=== PATIENT | male | born 1955 | race Caucasian/White ===

== ENCOUNTER 2021-11-02 07:48 | Day surgery (SDC) | payer MEDICARE, BC ==
[~2021-11-02] VITALS: Ht 175.3 cm; Wt 84.6 kg
[~2021-11-02 07:48] MED LIST: ALBU4; Aspir 8181 MG; Lisinopril2.5 MG; Prinivil10 MG; ROSU5
== END 2021-11-02 09:41 | disposition home or self-care (01) ==
LOC: ORSCSDS 07:48 → EDBD 09:00 → ORSCSDS 09:00
PROVIDERS: Internal Medicine Gastroenterology
PROC: 0DJD8ZZ Inspection of Lower Intestinal Tract, Via Natural or Artificial Opening Endoscopic (ICD-10-PCS; principal; 2021-11-02 09:00)
DX: Z12.11 Encounter for screening for malignant neoplasm of colon (principal); Z86.010 Personal history of colon polyps; K57.30 Diverticulosis of large intestine without perforation or abscess without bleeding; J45.909 Unspecified asthma, uncomplicated; K64.8 Other hemorrhoids; Z79.82 Long term (current) use of aspirin; Z79.899 Other long term (current) drug therapy
CPT/HCPCS: J2704; J7120

== ENCOUNTER 2023-09-13 06:36 | Day surgery (SDC) | payer MEDICARE, BC ==
[~2023-09-13] VITALS: Ht 175.3 cm; Wt 88.5 kg
[~2023-09-13 06:36] MED LIST changes: +Aspir 8181 MG PO
[2023-09-13] MEDS ORDERED: BUDESONIDE-FO10.2 G3 INH (07:01)
--- NOTE | 2023-09-13 08:04 | NUR ---
[facility]23 [facility] SAL[facility] IN TO DO NUMBING INJECTION IN PRE-OP. DR SALINAS ASKED PATIENT IF HE NEEDED THE "RELAXING MEDICINE" AND PATIENT REPLIED THAT NO, HE WAS FINE. TIMEOUT COMPLETED AND INJECTION COMPLETED.
[2023-09-13 08:29] VITALS: BP 143/81
== END 2023-09-13 08:55 | disposition home or self-care (01) ==
LOC: ORSCSDS 06:36
PROVIDERS: Orthopaedic Surgery
PROC: 01N54ZZ Release Median Nerve, Percutaneous Endoscopic Approach (ICD-10-PCS; principal; 2023-09-13 08:00)
DX: G56.03 Carpal tunnel syndrome, bilateral upper limbs (principal); Z79.82 Long term (current) use of aspirin; Z79.899 Other long term (current) drug therapy
CPT/HCPCS: J2250; J7120

== ENCOUNTER 2023-10-04 10:35 | Day surgery (SDC) | payer MEDICARE, BC ==
[~2023-10-04] VITALS: Ht 175.3 cm; Wt 89.3 kg
[~2023-10-04 10:35] MED LIST changes: +BUDESONIDE-FO10.2 G3 INH
--- NOTE | 2023-10-04 11:45 | NUR ---
10/04/23 Staci Awad PERFORMED A NERVE BLOCK OF THE PATIENTS LEFT HAND. A TIME OUT WAS DONE BEFORE THE BLOCK WAS STARTED. PATIENT TOLERATED WELL. CALL LIGHT IN REACH.
[2023-10-04 12:28] VITALS: BP 127/80
--- NOTE | 2023-10-04 14:06 | NUR ---
10/04/23 1406 FRANCISCO HENSLEY IV REMOVED CATH INTACT [facility]
== END 2023-10-04 12:45 | disposition home or self-care (01) ==
LOC: ORSCSDS 10:35
PROVIDERS: Orthopaedic Surgery
PROC: 01N54ZZ Release Median Nerve, Percutaneous Endoscopic Approach (ICD-10-PCS; principal; 2023-10-04 12:00)
DX: G56.02 Carpal tunnel syndrome, left upper limb (principal); I10 Essential (primary) hypertension; J45.909 Unspecified asthma, uncomplicated; Z79.82 Long term (current) use of aspirin; Z79.899 Other long term (current) drug therapy
CPT/HCPCS: J7120